=== PATIENT | female | born 1970 | race Caucasian/White ===

== ENCOUNTER 2018-12-31 09:38 | Emergency (ER) | payer OTHER, BC ==
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
[2018-12-31] MEDS ORDERED: FEXO1TAB63 PO (09:41)
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
[2018-12-31 11:25] VITALS: BP 138/87
[2018-12-31] MEDS ORDERED: LOR5/325 PO (11:26)
[2018-12-31] MEDS ORDERED: METH-543 PO (11:26)
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
== END 2018-12-31 11:33 | disposition home or self-care (01) ==
LOC: ER 09:43
DX: S13.4XXA Sprain of ligaments of cervical spine, initial encounter (principal); M25.511 Pain in right shoulder; M54.6 Pain in thoracic spine; V49.60XA Unspecified car occupant injured in collision with unspecified motor vehicles in traffic accident, initial encounter
CPT/HCPCS: 72072; 72125; 73030; 99284; L0172